=== PATIENT | male | born 1990 ===

== ENCOUNTER 2018-03-19 12:36 | Inpatient (IN) | payer OTHER ==
[~2018-03-19] VITALS: Ht 172.7 cm; Wt 75.7 kg
--- NOTE | 2018-03-19 12:37 | ER Report ---
History and Physical Time Seen By MD: 12:37 HPI/ROS CHIEF COMPLAINT: Sore throat HISTORY OF PRESENT ILLNESS: Patient is a 28-year-old male who is otherwise healthy who presents to the emergency department with severe sore throat. Patient was seen approximate 48 hours ago in urgent care for sore throat had a negative rapid strep at that time. This morning he woke up with worsening pain and was seen again at acute care was started on 40 mg of prednisone as well as a magic mouthwash. Soon after taking these medications he developed a rash and worsening swelling to the throat. Denies any fevers or chills. Denies similar episodes in the past he has no known drug allergies. Patient is tolerating secretions. No complaint of respiratory distress REVIEW OF SYSTEMS: ENT: Sore throat Respiratory: No cough, no dyspnea. Cardiovascular: No chest pain, no palpitations. Gastrointestinal: No vomiting, no abdominal pain. Musculoskeletal: No back pain. Allergies: Coded Allergies: No Known Allergies (Verified Allergy, Unknown, 03/19/18) Home Meds Reported Medications Methylphenidate Hcl (RITALIN) 20 Mg Tablet, 20 MG PO BID 03/19/18 Past Medical/Surgical History Noncontributory Constitutional Vital Sign - Last 24 Hours 03/19/18 03/19/18 03/19/18 03/19/18 12:36 12:40 12:57 12:59 Temp 99.0 Pulse ??? 98 Resp 18 B/P (MAP) 129/79 (96) 122/74 (90) 129/79 Pulse Ox 95 O2 Delivery Room Air 03/19/18 03/19/18 03/19/18 03/19/18 13:00 13:06 13:11 13:30 Pulse 104 B/P (MAP) 121/41 (67) 156/67 (96) 113/50 (71) Pulse Ox 97 03/19/18 03/19/18 03/19/18 03/19/18 13:36 14:00 14:06 14:11 Pulse 108 91 94 B/P (MAP) 123/64 (83) Pulse Ox 90 92 03/19/18 03/19/18 14:30 14:41 Pulse 93 B/P (MAP) 115/71 (86) Pulse Ox 93 Intake and Output 03/19/18 03/19/18 03/20/18 15:00 23:00 07:00 Intake Total 50 ml Balance 50 ml Physical Exam General Appearance: Alert, no distress. Eyes: Pupils equal and round no pallor or injection. ENT, Mouth: Ears: Tympanic membranes are normal. Nose: No bleeding. Mouth: Mucous membranes are moist. Throat: Patient with bilateral tonsillar exudate uvula symmetrical there is no trismus noted Musculoskeletal: Neck is supple non tender, anterior cervical adenopathy. Skin: Diffuse hives Medical Decision Making Data Points Result Diagram: 03/20/1852703/20/18527 Laboratory Hematology Test 03/19/18 12:45 Monoscreen Negative (NEGATIVE) Group A Streptococcus Screen Negative (NEGATIVE) Chemistry Test 03/19/18 12:45 Monoscreen Negative (NEGATIVE) Group A Streptococcus Screen Negative (NEGATIVE) EKG/Imaging Imaging [place]AC[place] [facility] [place]IENT NAME: Michael Mancilla : 1990 MR: [id number] V: [id number] EXAM DATE: ORDERING PHYSICIAN: ALEXIS JASMINE TECHNOLOGIST: Location: [facility] Patient: Michael Mancilla : 1990 Visit/Account:[id number] Date of Sevice: 03/19/2018 NECK SOFT TISSUE INDICATION: Sore throat. COMPARISON: None available FINDINGS: AP and lateral view of the soft tissues neck. On the lateral view the epiglottis looks prominent as well as the base of the tongue soft tissues. The airway is mildly narrowed at the base of the tongue. The aryepiglottic folds appear to be mildly prominent as well. The airway is patent without radiopaque foreign body. The remaining soft tissues are unremarkable. The bony structures are normal for age. Lung apices are clear. IMPRESSION: Prominence of the epiglottis, area of patellar folds and the base of tongue soft tissues. There is mild narrowing of the airway at the base of tongue region of the airway still patent. At this point cannot exclude early epiglottitis or inflammation of the inferior base of tongue region. I called report to ALEXIS JASMINE at 03/19/2018 2:03 PM. Report Dictated By: Mynor Miguel at 03/19/2018 2:00 PM Report E-Signed By: Mynor Miguel at 03/19/2018 2:05 PM [id number] ED Course/Re-evaluation ED Course ED differential: Viral pharyngitis, strep throat, mononucleosis. Plan will be to give epinephrine, diphenhydramine and Solu-Medrol and Pepcid. I will check CBC BMP and Monospot 03/19/2018 2:25:32 pm case was discussed with both internal medicine and general surgery. Dr. Almonte has agreed to admit the patient for continued observation and treatment with antibiotics. Dr. Schmid who is on for general surgery is aware of the patient and is agreeable to consultation if need for surgical intervention becomes necessary. Patient has no questions or concerns at time of disposition Decision to Disposition Date: Mar 19, 2018 Decision to Disposition Time: 14:26 Depart Departure Latest Vital Signs Vital Signs Date Time Temp Pulse Resp B/P (MAP) Pulse Ox O2 Delivery O2 Flow Rate FiO2 03/19/18 14:41 93 93 03/19/18 14:30 115/71 (86) 03/19/18 12:59 99.0 18 Room Air Impression: Primary Impression: Epiglottitis Condition: Improved Disposition: Admitted from ER (to DR Jorgito Almonte) ALEXIS JASMINE MD Mar 19, 2018 12:37
[2018-03-19] MEDS ORDERED: ANAPHYLAXIS KIT 1 EA ONE (12:42)
[2018-03-19] MEDS ORDERED: FAMOTIDINE(*) 20MG/50ML PREMIX 50 ML IVPB ONE (12:45)
[2018-03-19] MEDS ORDERED: EPINEPHrine 0.3 MG SYR IM ONLY ONE (12:45)
[2018-03-19] MEDS ORDERED: diphenhydrAMINE 50 MG/ML VIAL IVP ONE (12:45)
[2018-03-19] MEDS ORDERED: methylPREDNIS SUCC 125 MG/2ML IVP ONE (12:45)
[2018-03-19 12:59] LABS: PLATELET COUNT, AUTOMATED 210 K/uL (150-450)
[2018-03-19] MEDS ORDERED: EPINEPHrine HCL 1 MG/ML AMP IV ONE (13:06)
[2018-03-19] MEDS ORDERED: cefTRIAXone 1 GM VIAL IVP ONE (13:15)
[2018-03-19] MEDS ORDERED: METH20TA33 PO (13:19)
[2018-03-19] MEDS ORDERED: fentaNYL CITR 100 MCG/2 ML AMP IVP ONE (13:30)
--- NOTE | 2018-03-19 14:08 | RADIOLOGY IMAGING REPORT ---
[place] [facility] [place]IENT NAME: Michael Mancilla : 1990 MR: [id number] V: [id number] EXAM DATE: ORDERING PHYSICIAN: ALEXIS JASMINE TECHNOLOGIST: Location: [facility] [place] Patient: Michael Mancilla : 1990 Visit/Account:[id number] Date of Sevice: 03/19/2018 NECK SOFT TISSUE INDICATION: Sore throat. COMPARISON: None available FINDINGS: AP and lateral view of the soft tissues neck. On the lateral view the epiglottis looks pr ominent as well as the base of the tongue soft tissues. The airway is mildly narrowed at the base of the tongue. The aryepiglottic folds appear to be mildly prominent as well. The airway is patent witho ut radiopaque foreign body. The remaining soft tissues are unremarkable. The bony structures are norm al for age. Lung apices are clear. IMPRESSION: Prominence of the epiglottis, area of patellar folds and the base of tongue soft tissues. There is mild narrowing of the airway at the base of tongue region of the airway still patent. At th is point cannot exclude early epiglottitis or inflammation of the inferior base of tongue region. I called report to ALEXIS JASMINE at 03/19/2018 2:03 PM. Report Dictated By: Mynor Miguel at 03/19/2018 2:00 PM Report E-Signed By: Mynor Miguel at 03/19/2018 2:05 PM [id number]
[2018-03-19 15:07] VITALS: BP 130/77
--- NOTE | 2018-03-19 16:25 | History & Physical ---
History of Present Illness Chief Complaint Sore throat History of Present Illness 28yo male with very little PMHx (ADHD on Ritalin). He reports onset of sore throat on Wednesday this week (3 days ago). [facility] and had rapid strep testing done, which is reported to be negative. He was treated with ibuprofen and gargles without much relief. His symptoms worsened and he was seen in Urgent Care and placed on Magic Mouthwash and oral prednisone. He developed a patchy rash over his upper extremities and trunk. He denied any dyspnea or wheezing. He states he has had painful swallowing even with fluids. He denies any fevers or chills. No N/V. No diarrhea. He did have some GI symptoms a few weeks ago, but had resolved. He denies any urinary symptoms. He has not had any rash up to today. He was seen in the ER and there was concern for possible epiglottitis. He was recommended for admission. History Problems: (1) ADHD Status: Chronic Home Meds Reported Medications Methylphenidate Hcl (RITALIN) 20 Mg Tablet, 20 MG PO BID 03/19/18 Allergies: Coded Allergies: No Known Allergies (Verified Allergy, Unknown, 03/19/18) Patient History: FHx: diabetes mellitus Other Social/Family Hx He is student. Hx Smoking: No Hx Alcohol Use: No Hx Substance Use Disorder: No Review of Systems Constitutional: No Fever, No Chills, No Night Sweats Neurological: No Syncope, No Confusion, No Weakness Cardiovascular: No Chest Pain, No Palpitations Respiratory: No Shortness of Breath, No Cough, No Wheezing Gastrointestinal: No Nausea, No Vomiting, No Diarrhea, No Hematemesis, No Hematochezia, No Melena, No Abdominal Pain Genitourinary: No Dysuria, No Hematuria Musculoskeletal: No Pain, No Sprain, No Strain, No Impaired Mobility Exam Vital Signs Vital Signs Date Time Temp Pulse Resp B/P (MAP) Pulse Ox O2 Delivery O2 Flow Rate FiO2 03/19/18 15:07 92 Room Air 03/19/18 15:07 98.0 89 16 130/77 (94) General Appearance: Alert, Awake, No Acute Distress Neuro: No Gross deficits Eyes: PERRLA ENT: Other (oropharynx shows very enlarged tonsils (nearly touching in midline) with thick whitish/yellowish adherent discharge and some associated erythema) Neck: Other (multiple enlarged/tender anterior cervical nodes) Cardiovascular: Regular Rate and Rhythm Respiratory: Clear to Auscultation, Other (no stridor was noted) GI: Abd Soft and Non-Tender : No CVA Tenderness Extremities: Warm, Perfused Integumentary: Other (several areas of patchy erythema on both upper extremities and flanks) Psych: Alert & Oriented X3 Medical Decision Making Data Points Result Diagram: 03/19/18 1245 03/19/18 1245 Item Value Date Time Monoscreen Negative 03/19/18 1245 Group A Streptococcus Screen Negative 03/19/18 1245 EKG / Imaging Imaging PATIENT NAME: Michael Mancilla : 1990 MR: [id number] V: [id number] EXAM DATE: [id number] ORDERING PHYSICIAN: ALEXIS JASMINE TECHNOLOGIST: Location: [facility] [place] Patient: Michael Mancilla : 1990 Visit/Account:[id number] Date of Sevice: 03/19/2018 NECK SOFT TISSUE INDICATION: Sore throat. COMPARISON: None available FINDINGS: AP and lateral view of the soft tissues neck. On the lateral view the epiglottis looks prominent as well as the base of the tongue soft tissues. The airway is mildly narrowed at the base of the tongue. The aryepiglottic folds appear to be mildly prominent as well. The airway is patent without radiopaque foreign body. The remaining soft tissues are unremarkable. The bony structures are normal for age. Lung apices are clear. IMPRESSION: Prominence of the epiglottis, area of patellar folds and the base of tongue soft tissues. There is mild narrowing of the airway at the base of tongue region of the airway still patent. At this point cannot exclude early epiglottitis or inflammation of the inferior base of tongue region. I called report to ALEXIS JASMINE at 03/19/2018 2:03 PM. Report Dictated By: Mynor Miguel at 03/19/2018 2:00 PM Report E-Signed By: Mynor Miguel at 03/19/2018 2:05 PM [id number] Assessment and Plan Problems: (1) Pharyngitis Status: Acute Assessment & Plan: He does appear to have at the very minimum severe pharyngitis/tonsillitis. He will be placed on IV Rocephin and vancomycin for the potential concern of early epiglottitis. Will also give a pulse of IV steroids to see if can shrink some of the tonsillar tissue. Will allow him to take some clear liquids if he tolerates. ENT is not readily available, but Dr. Schmid (General Surgery) is immediately available if any airway problems arise. (2) Epiglottitis Status: Acute Assessment & Plan: He does not appear to have airway compromise at this time. He will be on the regimen as noted above. Will monitor closely. Dr. Schmid will be available if any problems. (3) ADHD Status: Chronic Assessment & Plan: He has been managed with Ritalin. Will hold for now. Venous Thromboembolism Antithrombotics Is Pt On Any Antithrombotics?: No (possible need for urgent surgical procedure) Exam Sepsis Risk: No Definite Risk SELENE CORNELIUS MD Mar 19, 2018 16:25
[2018-03-19] MEDS ORDERED: VANCOMYCIN(*) 1 GM VIAL 2 GM in NS(*) 0.9% 500 ML BAG 500 ML IVPB ONE (16:30)
[2018-03-19] MEDS: NS(*) 0.9% 1000 ML BAG 1,000 ML IV PRN (16:36)
[2018-03-19] MEDS: fentaNYL CITR 100 MCG/2 ML AMP IVP PRN ×2 (16:46→19:50)
[2018-03-19 19:20] VITALS: BP 138/85
[2018-03-19 19:37] VITALS: Ht 172.7 cm; Wt 75.7 kg
[2018-03-19] MEDS: ACETAMINOPHEN(*)1000 MG/100 ML 100 ML IVPB PRN (19:48)
--- NOTE | 2018-03-19 19:54 | Medical Nutrition Therapy ---
Nutrition Anthropometrics Height (Inches): 68.00 Height (Calculated Centimeters: 172.530120 Weight (Pounds): 167 Weight (Calculated Kilograms): 75.750 BMI: 25.4 Simba Nutrition Score: Probably Inadequate Simba Nutrition Risk Score: 20 Dietary Referral Nutrition Risk Factors: Diff. Swallowing, Recent Nutrition Impact Nutrition Risk Comment: patient presents with epiglotitis and difficulty/soreness with swallowing Physical Findings Physical Appearance: Overweight BMI 25-29 Skin Appearance Skin Appearance: Edema Edema Location Modifier: Edema Location: Type of Edema: Degree of Edema: Gastrointestinal Symptoms GI Symtoms: Tube Present: Bowel Sounds: Recent Bowel Pattern: Stool Characteristics: Nutrition/Food History Difficulty Swallowing Nutritional Diagnosis Nutritional Risk Acuity 2: Swallowing Problem Past Medical History: ADHD Nutritional Acuity: 2-Moderate Nutrition Diagnosis: Swallowing Difficulties Nutrition Etiology: Physiological Causes Nutrition Problem/Etiology/Sym: Swallowing Difficulty related to Mechanical causes, e.g., Epiglottitis AEB avoidance of foods and liquids d/t pain. Energy Requirement: 2400 ([place]-St Jeor: Actual BW X 1.4) Protein Requirement: 76 (Actual BW Kg X 1.0) Fluid Requirement: 2400 Diet Type: Clear Liquids Nutrition Intervention: Incr diet as tolerated Nutrition Monitoring & Eval Nutrition Goals: Eat 75-100% Meal RD Patient Assessment Time: [address] Assessment Type: RD Assessment Patient Nutrition Acuity: 2-Moderate Follow Up Date: Mar 21, 2018 Nutritional Comment: 03/19/18 Pt admitted with Epiglottitis. Slightly in overwt range with BMI of 25.4. WBC 18.3. Receiving Clear liquids d/t swallowing difficulty with not reports of intake. Follow clinical progression, diet changes, etc. -GOMEZ PEMBERTON Mar 19, 2018 19:54
[2018-03-19] MEDS: VANCOMYCIN 1 GM ADDVIAL 1 GM in NS(*) 0.9% 250 ML ADDVAN BAG 250 ML IVPB SCH (23:56)
[2018-03-20 00:05] VITALS: BP 107/63
[2018-03-20] MEDS: methylPREDNIS SUCC 125 MG/2ML IVP SCH ×2 (01:33→13:28)
[2018-03-20] MEDS: ACETAMINOPHEN(*)1000 MG/100 ML 100 ML IVPB PRN ×3 (01:33→18:48)
[2018-03-20] MEDS: fentaNYL CITR 100 MCG/2 ML AMP IVP PRN (02:00)
[2018-03-20 03:54] VITALS: BP 116/54
[2018-03-20] MEDS: NS(*) 0.9% 1000 ML BAG 1,000 ML IV PRN ×2 (05:55→17:14)
[2018-03-20 06:09] LABS: PLATELET COUNT, AUTOMATED 193 K/uL (150-450)
[2018-03-20 07:48] VITALS: BP 116/79
[2018-03-20] MEDS: VANCOMYCIN 1 GM ADDVIAL 1 GM in NS(*) 0.9% 250 ML ADDVAN BAG 250 ML IVPB SCH (08:18)
--- NOTE | 2018-03-20 11:00 | Hospitalist Progress Note ---
Subjective Progress Notes Subjective He reports overall improvement. Now he can swallow liquids and he doesn't feel like he is having trouble breathing. Staff reports reduction in size of tonsils. Physical Exam Vital Signs Date Time Temp Pulse Resp B/P (MAP) Pulse Ox O2 Delivery O2 Flow Rate FiO2 03/20/18 07:48 97.7 81 14 116/79 (91) 92 Room Air 03/20/18 03:54 1.0 Intake and Output 03/20/18 07:00 Intake Total 2520 ml Balance 2520 ml Intake Oral 1020 ml IV Total 1500 ml # Voids 4 General Appearance: Alert, Awake, No Acute Distress (Breathing comfortably. Voice mildy muffled) Neuro: No Gross deficits ENT: Other (White exudate covering the entirety of both tonsils. Tonsils enlarged with about 3-4 mm between them. Uvula not enlarged, but erythematous) Result Diagram: 03/20/1852703/20/18527 Assessment and Plan Problems: (1) Pharyngitis Status: Acute Assessment & Plan: He does appear to have at the very minimum severe pharyngitis/tonsillitis. He is on IV Rocephin and vancomycin for the potential concern of early epiglottitis. Also, he is receiving a pulse of IV steroids to see if can shrink some of the tonsillar tissue. Will allow him to take some clear liquids if he tolerates. ENT is not readily available, but Dr. Schmid (General Surgery) is immediately available if any airway problems arise. Overall improving, but tonsils still quite large. Will reevaluate this aft ernoon. (2) Epiglottitis Status: Acute Assessment & Plan: He does not appear to have airway compromise at this time. He will be on the regimen as noted above. Will monitor closely. Dr. Schmid will be available if any problems. (3) ADHD Status: Chronic Assessment & Plan: He has been managed with Ritalin. Will hold for now. Exam Sepsis Risk: No Definite Risk ANDRES GARDUNO MD Mar 20, 2018 11:00
[2018-03-20] MEDS ORDERED: cefTRIAXone 1 GM VIAL IVP SCH (13:00)
[2018-03-20 13:29] VITALS: BP 129/66
[2018-03-20] MEDS: VANCOMYCIN(*) 1 GM VIAL 1 GM, VANCOMYCIN (*) 0.5 GM VIAL 0.5 GM in NS(*) 0.9% 250 ML BA... IVPB SCH (16:23)
[2018-03-20 17:10] VITALS: BP 123/70
[2018-03-21] MEDS: methylPREDNIS SUCC 125 MG/2ML IVP SCH (00:07)
[2018-03-21] MEDS: VANCOMYCIN(*) 1 GM VIAL 1 GM, VANCOMYCIN (*) 0.5 GM VIAL 0.5 GM in NS(*) 0.9% 250 ML BA... IVPB SCH ×2 (00:08→07:32)
[2018-03-21] MEDS: NS(*) 0.9% 1000 ML BAG 1,000 ML IV PRN (06:19)
[2018-03-21 07:27] VITALS: BP 119/76
[2018-03-21] MEDS ORDERED: METH4TAB66 PO (08:03)
[2018-03-21] MEDS ORDERED: PENI-24 PO (08:03)
--- NOTE | 2018-03-21 08:06 | Hospitalist Depart ---
Discharge Summary Reason for Hosp/Final Diag: (1) Pharyngitis Status: Acute Hospital Course & Plan: He did present with pain in the throat and difficulty swallowing. His tonsils were swollen with exudate. A rapid strep test was negative, but a culture is pending. He was started on ceftriaxone and steroids. He will discharge on oral penicillin and a medrol dose pack. (2) Epiglottitis Status: Acute Hospital Course & Plan: Improving with steroids. (3) ADHD Status: Chronic Hospital Course & Plan: He has been managed with Ritalin. Will hold for now. Departure Latest Vital Signs Vital Signs 03/20/18 03/21/18 03:54 07:27 Temp 98.0 Pulse 80 Resp 14 B/P (MAP) 119/76 (90) Pulse Ox 93 O2 Delivery Room Air O2 Flow Rate 1.0 Weight (Pounds): 167 Result Diagram: 03/20/1852703/20/18527 Condition: Improved Discharge: Home, Self Care Discharge Instructions Home Meds Active Scripts Methylprednisolone (METHYLPREDNISOLONE) 4 Mg Tab.ds.pk, 4 MG PO DIRECTED, #1 TAB Prov:LATRELL GRACE DO 03/21/18 Penicillin V Potassium 500 Mg Tab (PENICILLIN V POTASSIUM 500 MG TAB) 500 Mg Tablet, 500 MG PO TID, #30 TAB Prov:LATRELL GRACE DO 03/21/18 Reported Medications Methylphenidate Hcl (RITALIN) 20 Mg Tablet, 20 MG PO BID 03/19/18 Diet: Regular Activity: As Tolerated Venous Thromboembolism Antithrombotics Is Pt On Any Antithrombotics?: No (possible need for urgent surgical procedure) LATRELL GRACE DO Mar 21, 2018 08:06
--- NOTE | 2018-03-21 09:33 | Antimicrobial Stewardship ---
Antimicrobial Time Out Antimicrobial Stewardship MD Service: Hospitalist Indications: Other (epiglottitis) Antimicrobial Used Rocephin 1 gm IVP q 24 hours and Vancomycin 1.5 gm ivpb q 8 hours Start Date: Mar 19, 2018 Culture Results: EMILY Tolentino Mar 21, 2018 09:33
== END 2018-03-21 10:35 | disposition home or self-care (01) | DRG 153 ==
LOC: ER 12:38 → MED 14:47
PROVIDERS: ADMIT Internal Medicine; ATTEND Internal Medicine
DX: J02.9 Acute pharyngitis, unspecified (principal); J05.10 Acute epiglottitis without obstruction; F90.9 Attention-deficit hyperactivity disorder, unspecified type
CPT/HCPCS: 36415; 70360; 80202; 82040; 82247; 82310; 82374; 82435; 82565; 82947; 84075; 84132; 84155; 84295; 84450; 84460; 84520; 85025; 86308; 87081; 87880; 96365; 96375; 99285; J0131; J0171; J0696; J1200; J2930; J3010; J3370; J3490; J7030; J7040; J7050